=== PATIENT | male | born 1985 | race Caucasian/White ===

== ENCOUNTER 2018-06-28 08:20 | Emergency (ER) | payer BC, OTHER, SELFPAY ==
[2018-06-28 08:21] VITALS: BP 198/132; PULSE 85; RESP 20; TEMP 36.6; O2SAT 98; BMI 41.5
--- NOTE | 2018-06-28 08:28 | RAD_ITS ---
STUDY: X-RAY - LUMBAR SPINE REASON FOR EXAM: Male, 32 years old. Low back pain with radiation down left leg. TECHNIQUE: 3 view(s) of the lumbar spine were obtained. COMPARISON: Prior comparison studies are not available for review at this time. FINDINGS: There is straightening of the normal lumbar lordosis. There is no substantial scoliosis. There is a normal alignment of the vertebrae. Normal vertebral bodies and endplates. There is narrowing of L4-5 and L5-S1 disc spaces. There is no demonstrated fracture. The soft tissue structures are unremarkable. RAD/Lumbar Spine 2 or 3 Views IMPRESSION: Multilevel degenerative disc disease of the lower lumbar spine. Electronically Signed: Erin James MD at 9:05 EST , Service support ,
[2018-06-28] MEDS: morphine 8 MG/ML Syringe IM (08:34)
[2018-06-28] MEDS: Orphenadrine 60 MG/2 ML Ampul IM (08:34)
--- NOTE | 2018-06-28 08:37 | ED.DCSUM_ITS ---
- ER Visit Summary Date of Service: 06/28/18 Chief Complaint: Back pain, leg pain History of Present Illness: The patient is a 32 M with history of sciatica presents to the emergency department with lower back pain. Patient states 3 weeks ago, he slipped down 6 stairs in his house. He states he landed on his butt. He states he really had no injury. About a week later, he began to have a burning pain in his left low back. He states since then, has begun to radiate down his left leg. He describes intense burning pain especially when he bends. It is not exertional. It is strictly based on movement. The pain does not radiate into his groin. He has had no changes in bowel habits or urination. He denies any fevers or chills. He has no history of IV drug abuse. The patient states that he went to the [facility] emergency department. He states that he had been given anti-inflammatories, steroids, and analgesics. He states he feels like if not helping the pain. He has had similar pain in the past, but states this is more severe. Physical Examination: Afebrile, vitals unremarkable. Well-appearing male no acute distress. Head is normocephalic, atraumatic. Pupil's equal round reactive, extraocular muscles intact. Neck supple. Heart regular rate and rhythm. Lungs clear, chest nontender. Abdomen soft, nontender, nondistended. No pulsatile mass. Patient has paraspinal tenderness in the left lumbar area, but no bony tenderness. Straight leg raise is positive on the left re-creating the paresthesias down the leg. 2+ symmetric lower extremity pulses. 2+ reflexes. No clonus. No weakness of dorsiflexion, plantar flexion, or extensor hallucis longus bilaterally. Test Results: [] Emergency Department Course and Treatment: The patient presents to the emergency department with with left-sided back pain that radiates down his left leg. His symptoms do seem consistent with an acute sciatica. He has normal pulses. He has normal reflexes. He has no abdominal pain. He has no weakness. I did obtain plain films. He does have disc space narrowing at the L4-L5 and L5-S1. I do feel that this is a lateral impingement. I have no concern for epidural abscess, cauda equina, or other dangerous process. I am going to treat the patient with analgesics and antispasmodics. He has had improvement with gabapentin in the past and will use this. I did refer him to new primary care physician and told him that he would likely benefit from physical therapy. The patient is comfortable with this plan of care. He will be discharged home. Treatment Plan: [] Disposition: Discharge Impression: 1. Acute lumbar strain with left radiculopathy This note was generated with [employer] dictation software. It may contain incorrect words, spelling, and punctuation that were not noted in review of the chart prior to signing ED Disposition - Plan for ED Patient: Chief Complaint: Back Instructions: ED Sciatica Prescriptions: Oxycodone HCl/Acetaminophen [Percocet 5/325] 1 tab PO Q6H PRN PRN 3 Days #8 tab PRN Reason: Pain Gabapentin [Neurontin] 100 mg PO BIDCM 7 Days #14 cap Cyclobenzaprine [Flexeril] 10 mg PO TID PRN #10 tab PRN Reason: Muscle Spasm Referrals: Joya Smith DO [STAFF PHYSICIAN] -
[2018-06-28 08:57] VITALS: BP 176/106; PULSE 77; RESP 18; O2SAT 98
== END 2018-06-28 09:09 | disposition home or self-care (01) ==
LOC: ED 08:51
PROVIDERS: Emergency Provider Emergency Medicine
DX: S39.012A Strain of muscle, fascia and tendon of lower back, initial encounter (principal); X58.XXXA Exposure to other specified factors, initial encounter; Y93.9 Activity, unspecified; Y92.9 Unspecified place or not applicable; Y99.9 Unspecified external cause status; M51.36 Other intervertebral disc degeneration, lumbar region; M54.10 Radiculopathy, site unspecified; Z72.0 Tobacco use; Z79.899 Other long term (current) drug therapy
CPT/HCPCS: 72100; 96372; 99282

== ENCOUNTER 2019-02-21 21:02 | Emergency (ER) | payer BC, OTHER, SELFPAY ==
[2019-02-21 21:02] VITALS: BP 159/101; PULSE 62; RESP 18; TEMP 36.3; O2SAT 98; BMI 43.9
[2019-02-21 22:01] LABS: Absolute Lymphocyte Count 2.46 X10^3/uL (0.83-4.51); Absolute Neutrophil Count 6.9 X10^3/uL (2.0-7.7); Basophil# 0.03 X10^3/uL; Basophil% 0.3 % (0-1); Eosinophil# 0.29 X10^3/uL; Eosinophils% 2.8 % (0-5); Hematocrit 41.4 % (40-54); Hemoglobin 14.1 g/dL (13.0-16.5); Lymphocyte # 2.46 X10^3/ul (4.0); Lymphocyte % 23.9 % (19-41); Mean Corp Hgb Conc 34.1 g/dL (32-36); Mean Corpuscular Hgb 29.4 pg (27.0-32.0); Mean Corpuscular Volume 86.3 fL (80-94); Mean Platelet Vol. 12.2 fl (6.2-12.0); Monocyte# 0.57 X10^3/uL; Monocyte% 5.5 % (0-10); NRBC Flagged by Analyzer 0 % (0-5); Neutrophil # 6.91 X10^3/uL (2.7-7.7); Neutrophil % 67.1 % (47-70); Platelet Count 120 K/mm3 (150-450); RBC Distribution Width CV 12.2 % (11.6-14.6); RBC Distribution Width SD 38.5 fl (35.1-43.9); White Blood Count 10.3 K/mm3 (4.4-11.0)
--- NOTE | 2019-02-21 22:12 | ED.VIS.GEN ---
History of Present Illness Chief Complaint: Dizziness Detail of Chief Complaint: I do not feel Informant: Patient, Family Onset: Today - Earlier this morning Context: Sudden Onset Timing: Intermittent Quality: Dizziness which is not vertigo. He also complains of difficulty focusing Location: Vague Current Severity: Mild Maximum Severity: Moderate Worsened by: Nothing Relieved by: Nothing Associated Symptoms: No other symptoms Narrative: Patient is a 33-year-old male who smokes and drinks on weekends who presents with dizziness. He is unable to define what dizziness means. He states he has difficulty focusing. He denied blurred vision, change in vision or loss of vision. He did not have double vision. As read as ears decreased hearing. Denies rhinorrhea, congestion or postnasal drainage. He denies cardiac arrest or symptoms. He denies nausea, vomiting diarrhea. He denies urologic symptoms. There is no history of trauma. His symptoms are not positional. Prior similar symptoms: No Recent Illness/Hospitalization: No - Past Medical History (1) Sciatica Status: Acute Past Medical History - Allergies and Home Meds Allergies/Adverse Reactions: Allergies No Known Allergies Allergy (Verified 02/21/19 21:02) Primary Care Physician: Care Physician,No Primary [Primary Care Provider] - Prior records reviewed: Yes Surgical History: no surgical history Lives: With Family Smoking Status: Current every day smoker Alcohol: Occasional Drugs: None Review of Systems General: Reports: Malaise. Denies: Chills, Fever, Subjective, Sweats, Weight loss, - Eyes: Denies: Visual changes - bilaterally, Diplopia ENT: Denies: Rhinorrhea, Sore throat Cardiovascular: Denies: Chest pain, Palpitations Respiratory: Denies: Dyspnea, Cough, Dyspnea on exertion Gastrointestinal: Denies: Abdominal pain, Nausea, Vomiting, Diarrhea, Melena, Hematochezia Genitourinary: Denies: Dysuria, Hematuria, Frequency Musculoskeletal: Denies: Myalgias, Arthralgias, Neck pain, Back pain, Extremity Pain Skin: Denies: Rash, Abscess, Wounds Neurological: Denies: Headache, Weakness, Numbness Endocrine: Denies: Polyuria, Polydipsia Hematologic: Denies: Easy bruising, Easy bleeding Physical Exam Vital Signs/Narrative: Vital Signs Temp Pulse Resp BP Pulse Ox 02/21/19 21:02 97.4 F L 62 18 159/101 H 98 Inital Vital Signs reviewed: Yes General: Well nourished, Well developed, No Acute Distress Head: Normocephalic, Atraumatic Eyes: Perrl, EOMI ENT: Moist mucous membranes, No rhinorrhea Neck: Supple, Nontender Cardiovascular: Regular rate, Regular rhythm, No murmurs Respiratory: No distress, CTA bilaterally, Chest nontender Abdomen: Soft, Nontender, Nondistended, Normal bowel sounds Back: Nontender, Normal Inspection Extremities: Nontender, No edema Skin: Normal color, No rash Neurological: Alert, Oriented x3, Cranial nerves II-XII grossly intact, Normal Strength, Normal Sensation, Normal DTR, Normal Gait, - - Cerebellar testing is normal. Winfield-Hallpike maneuver negative. The eye askew test is negative. The hint test is negative. Psychological: Normal affect, Normal Mood Diagnostic/Tx/Re-eval Laboratory Results 02/21/19 02/21/19 21:50 21:50 WBC 10.3 RBC 4.80 Hgb 14.1 Hct 41.4 MCV 86.3 MCH 29.4 MCHC 34.1 RDW Std Deviation 38.5 RDW Coeff of Alex 12.2 Plt Count 120 L MPV 12.2 H Immature Gran % (Auto) 0.400 Neut % (Auto) 67.1 Lymph % (Auto) 23.9 [place] % (Auto) 5.5 Eos % (Auto) 2.8 Baso % (Auto) 0.3 Absolute Neuts (auto) 6.9 Absolute Lymphs (auto) 2.46 Nucleated RBC % 0 Sodium 139 Potassium 4.1 Chloride 107 Carbon Dioxide 26.0 Anion Gap 6 BUN 11 Creatinine 0.91 Estim Creat Clear Calc 99.50 Est GFR (MDRD) Af Amer 122 Est GFR (MDRD) Non-Af 101 BUN/Creatinine Ratio 12.0 Glucose 91 Calcium 9.1 Total Bilirubin 0.30 AST 29 ALT 63 H Alkaline Phosphatase 70 Total Protein 7.1 Albumin 3.9 Globulin 3.2 Albumin/Globulin Ratio 1.2 Lab results are unremarkable. - Medical Decision Making She with vague symptoms. He insists something is wrong. Will obtain screening blood work and reassess. With vague symptoms and normal labs will discharge to home ED Disposition - Plan for ED Patient: Disposition: Home or Assisted Living Diagnosis: Dizziness, nonspecific Instructions: DIZZINESS, Unk Cause Referrals: Care Physician,No Primary [Primary Care Provider] - Matthew Engle MD [STAFF PHYSICIAN] - 1-2 Days if not improving Additional Instructions: Since she did not have a physician you were referred to Dr. Matthew Engle for follow-up.
[2019-02-21 22:20] LABS: ALB/GLOB Ratio 1.2 RATIO (0.9-2.4); AST(SGOT) 29 U/L (15-37); Alanine Aminotransfer ALT/SGPT 63 U/L (16-61); Albumin, Serum 3.9 g/dL (3.2-5.0); Alkaline Phosphatase 70 U/L (45-117); Anion Gap 6 (5-15); BUN 11 mg/dL (7-18); Calcium,Total 9.1 mg/dL (8.5-10.1); Chloride 107 mmol/L (98-107); Creatinine, Serum 0.91 mg/dL (0.70-1.30); EST Glomerular Filtration Rate 101 mL/min (>60); Est Glom Filt Rate - Afr Amer 122 mL/min (>60); Globulin 3.2 g/dL (2.2-4.2); Glucose 91 mg/dL (74-106); Potassium 4.1 mmol/L (3.5-5.1); Protein, Total 7.1 g/dL (6.4-8.2); Sodium Level 139 mmol/L (136-145)
[2019-02-21] MEDS: Ondansetron 4 MG/2 ML Vial IV (22:33)
[2019-02-22 00:07] VITALS: PULSE 81; RESP 16; O2SAT 98
== END 2019-02-22 00:07 | disposition home or self-care (01) ==
PROVIDERS: Emergency Provider Emergency Medicine
DX: R42 Dizziness and giddiness (principal); M54.30 Sciatica, unspecified side; F17.200 Nicotine dependence, unspecified, uncomplicated
CPT/HCPCS: 80053; 85025; 96361; 96374; 99284; J7030; A4216; J2405